=== PATIENT | female | born 1985 | race Caucasian/White ===

== ENCOUNTER 2018-02-20 12:07 | Emergency (ER) | payer MEDICAID ==
[~2018-02-20] VITALS: Ht 162.6 cm; Wt 70.3 kg
[2018-02-20 12:12] VITALS: BP_SYST 115
[2018-02-20 12:35] VITALS: BP_SYST 115
== END 2018-02-20 12:32 | disposition home or self-care (01) ==
LOC: SED 12:07
DX: K02.9 Dental caries, unspecified (principal); Z88.6 Allergy status to analgesic agent
CPT/HCPCS: 99281